=== PATIENT | male | born 1945 | race Caucasian/White ===

== ENCOUNTER 2017-02-18 09:41 | Day surgery (SDC) | payer OTHER ==
[~2017-02-18] VITALS: Ht 177.8 cm; Wt 85.2 kg
[~2017-02-18 09:41] MED LIST: pantoprazole PO
[2017-02-18 10:39] VITALS: Ht 177.8 cm; Wt 85.2 kg
[2017-02-18] MEDS ORDERED: SIMV40TA2 PO (10:49)
[2017-02-18] MEDS ORDERED: LIDOCAINE 4% SOLUTION 50 ML BTL ONE (11:14)
[2017-02-18 11:16] VITALS: BP 114/55; PULSE 54; RESP 18
[2017-02-18] MEDS ORDERED: FENTAnyl 50 MCG/ML VIAL ONE (11:46)
[2017-02-18] MEDS ORDERED: MIDAZOLAM 1 MG/ML 2 ML INJ ONE ×2 (11:46)
--- NOTE | 2017-02-18 11:52 | GILP ---
DATE OF PROCEDURE: PROCEDURE: Esophagogastroduodenoscopy. PREOPERATIVE DIAGNOSIS: Patient presenting with history of chronic heartburn, unresponsive to routi ne proton pump inhibitor therapy, rule out esophagitis, rule out Strange's esophagus, rule out erosi ve esophagitis. POSTOPERATIVE DIAGNOSES: 1. Mild reflux esophagitis, [place] classification A. 2. Small hiatal hernia. 3. Nodularity of the gastric body and mid body and the fundus. Biopsies were done as follows. DESCRIPTION OF PROCEDURE: After informed written consent was obtained, the patient was asked to lie on the left lateral side, 3 mg Versed and 50 mcg of fentanyl were given as intravenous anesthesia. When the patient became somnolent, the Olympus video upper endoscope was introduced into the orophar ynx, then into the esophagus. The esophagus showed evidence of 2 areas of erythema just above the G E junction and also a small hiatal hernia was noted. The reflux esophagitis was consistent with [place] classification A. Scope at this time was advanced into the stomach. Multiple polyps were noted in the mid body and fundus of the stomach. Multiple biopsies were obtained to rule out H pylo ri. Also, biopsy was done to rule out MALToma. Biopsy was done from the antrum, the lesser curvatu re and the fundus to rule out H pylori infection. Scope at this time was advanced into the duodenum . Entire duodenum appeared normal except minimal duodenitis in the bulb. Scope at this time was wi thdrawn, and the procedure was terminated. PLAN: Recommend proton pump inhibitor therapy to be continued, pantoprazole 40 mg a day, and wait f or the pathology report. Dictated By: BRETT NEWTON/NTS Conf#: [id number] DID#: [id number] CC: SHIRA MARQUEZ MD;*EndCC*
[2017-02-18 12:19] VITALS: BP 101/69; PULSE 50; RESP 19
== END 2017-02-18 13:44 | disposition home or self-care (01) ==
LOC: GIL 09:41
PROVIDERS: ATTEND Internal Medicine Gastroenterology
DX: K21.0 Gastro-esophageal reflux disease with esophagitis (principal); K44.9 Diaphragmatic hernia without obstruction or gangrene
CPT/HCPCS: 43239; 88305; 88312; 88313; J2250; J3010; Z7610

== ENCOUNTER 2018-11-10 06:19 | Observation (INO) | payer MEDICARE, OTHER ==
[2018-11-10] VITALS (16 sets, daily range): BP systolic 104–135; BP diastolic 60–74; PULSE 64–76; RESP 10–72; Ht 177.8 cm; Wt 86.1 kg
[~2018-11-10] VITALS: Ht 177.8 cm; Wt 86.1 kg
[~2018-11-10 06:19] MED LIST changes: +SIMV40TA2 PO
[2018-11-10] MEDS ORDERED: PROPOFOL 200 MG INJ ONE (07:00)
[2018-11-10] MEDS ORDERED: ROCURONIUM 50 MG INJ ONE (07:00)
[2018-11-10] MEDS ORDERED: SUCCINYLCHOLINE CHLORIDE 100 MG/5 ML SYG IV ONE (07:00)
[2018-11-10] MEDS ORDERED: PANT40TA3 PO (07:16)
--- NOTE | 2018-11-10 09:14 | HPN ---
Date/Time of Note Date/Time of Note DATE: 11/10/18 TIME: 09:14 Interval H&P Admission Note Pt. seen H&P reviewed: No system changes BRENNA VEGAS Nov 10, 2018 09:14
--- NOTE | 2018-11-10 09:15 | PREAC ---
Date/Time of Note Date/Time of Note DATE: 11/10/18 TIME: 09:13 Anesthesia Eval and Record Evaluation Time Pre-Procedure Interview DATE: 11/10/18 TIME: 09:13 Age 73 Sex male NPO: 8 hrs Preoperative diagnosis turp Planned procedure turp Past Medical History Past Medical History: None Surgery & Anesthesia Issues No known issue Meds Anticoagulation: No Beta Sp within 24 hr: No Reason Beta Sp not given: Pt. not on B-Sp Reported Medications Pantoprazole* (Protonix*) 40 Mg Tablet.dr, 40 MG PO DAILY, TAB 11/10/18 Discontinued Reported Medications Simvastatin* (Zocor*) 40 Mg Tablet, 40 MG PO QHS, #30 TAB 02/18/17 [pantoprazole] No Conflict Check, PO DAILY 09/29/13 Meds reviewed: Yes Allergies Coded Allergies: No Known Allergies (Verified Allergy, Unknown, 11/10/18) Allergies Reviewed: Yes Labs/Studies Labs Reviewed: Reviewed by anesthesiologist test: N/A Pre-procedure Exam Last vitals Vital Signs Date Temp Pulse Resp B/P (MAP) Pulse Ox O2 O2 Flow FiO2 Time Delivery Rate 11/10/18 96.7 64 16 114/63 98 Room Air 07:18 (80) Airway: Adequate mouth opening, Adequate thyromental dist Mallampati: Mallampati III Teeth: Normal Lung: Normal Heart: Normal ASA Physical Status ASA physical status: 2 Emergency: None Pre-operative Attestations Prior to commencing anesthesia and surgery, the patient was re-evaluated, there was verification of: *The patient's identity *The results of appropriate recent lab work and preoperative vital signs *The above evaluation not changing prior to induction *Anesthetic plan, risk benefits, alternative and complications discussed with patient/family; questions answered; patient/family understands, accepts and wishes to proceed. INDER BARTLETT DO Nov 10, 2018 09:15
[2018-11-10] MEDS ORDERED: ETOMIDATE 20 MG INJ ONE (09:16)
[2018-11-10] MEDS ORDERED: MIDAZOLAM 1 MG/ML 2 ML INJ ONE (09:16)
[2018-11-10] MEDS ORDERED: LIDOCAINE 1% (MDV) 20 ML INJ ONE (09:16)
[2018-11-10] MEDS ORDERED: FENTAnyl 50 MCG/ML VIAL ONE (09:16)
[2018-11-10] MEDS ORDERED: CIPROFLOXACIN 400MG/D5W 200 ML ONE (09:42)
[2018-11-10] MEDS ORDERED: DEXAMETHASONE 4 MG/ML 5 ML INJ ONE (09:47)
[2018-11-10] MEDS ORDERED: ONDANSETRON 4 MG INJ ONE (09:47)
[2018-11-10] MEDS ORDERED: GLYCOPYRROLATE 0.4 MG INJ ONE (11:01)
[2018-11-10] MEDS ORDERED: NEOSTIGMINE 3 MG/3 ML SYRINGE ONE (11:01)
[2018-11-10] MEDS: BELLADONNA ALK/OPIUM SUPP PR SCH ×2 (11:29→11:30)
[2018-11-10] MEDS ORDERED: ONDANSETRON 4 MG INJ IV PRN (11:30)
[2018-11-10] MEDS ORDERED: HYDROmorphONE 1 MG/5 ML IV SYRINGE IV PRN ×3 (11:30)
--- NOTE | 2018-11-10 11:39 | NUR ---
RECEIVED PATIENT FRO DYAN VIA GURNEY POST TURP UNDER GENERAL ANESTHESIA .AROUSABLE ON ARRIVAL .SHIVERING .PLACED ON BEAR HUGGER. RECEIVED WITH 3 WAY HESTER TO CONTINUOS BLADDER IRRIGATION ,DRAINING FREELY TO CRANBERRY PINK OUT PUT. SR /BP STABLE SATURATING 98% ON 3LNC.
--- NOTE | 2018-11-10 12:05 | NUR ---
C/O PAIN 04/27 .DILAUDID0.6MG IV GIVEN. ZOFRAN 4MG IV GIVEN.FOR NAUSEA PROPHYLAXIS.
--- NOTE | 2018-11-10 12:07 | PAC ---
Date/Time of Note Date/Time of Note DATE: 11/10/18 TIME: 12:06 Post-Anesthesia Notes Post-Anesthesia Note Last documented vital signs Vital Signs Date Temp Pulse Resp B/P (MAP) Pulse Ox O2 O2 Flow FiO2 Time Delivery Rate 11/10/18 98 64 15 112/65 98 Room Air 07:18 Activity: WNL Respiratory function: WNL Cardiovascular function: WNL Mental status: Baseline Pain reasonably controlled: Yes Hydration appropriate: Yes Nausea/Vomiting absent: Yes INDER BARTLETT DO Nov 10, 2018 12:07
--- NOTE | 2018-11-10 12:17 | NUR ---
STILL MOANING C/O PAIN 02/25 .DILAUDID0.4MG IV GIVEN.
--- NOTE | 2018-11-10 12:18 | OPR ---
Date/Time of Note Date/Time of Note DATE: 11/10/18 TIME: 12:16 Operative Report Procedure Date: Nov 10, 2018 Preoperative Diagnosis BPH, Bladder Neck Contracture Postoperative Diagnosis Same Operation/Procedure Performed TURP- TURBNC Surgeon Concha Family Dinner Service Specialist None Anesthesia Type: general Estimated Blood Loss: 100 - 150 ml's Transfusion none Specimen prostate and bladder neck contracture Grafts/Implants none Tubes/Drains [address] teixeira Complications none Pt Condition Post Procedure: stable Disposition: PACU Indications BNC and TORO Procedure Description dict [id number] BRENNA VEGAS Nov 10, 2018 12:18
--- NOTE | 2018-11-10 12:25 | NUR ---
KEEPS MOANING AND C/O PAIN 02/25 .DILAUDID0.6MG IV GIVEN. EDUCATEDA ABOUT PAIN GOAL AND PAIN LEVEL .
[2018-11-10] MEDS: DEXTROSE 5%-0.45% NACL 1,000 ML IV SCH (12:29)
[2018-11-10] MEDS ORDERED: MAGNESIUM HYDROXIDE 30ML CUP PO PRN (12:30)
[2018-11-10] MEDS ORDERED: HYDROCODONE/APAP (5/325) TAB PO PRN (12:30)
--- NOTE | 2018-11-10 12:35 | NUR ---
PAIN CONTROLLED TO 3/10 .GOAL MET .
--- NOTE | 2018-11-10 12:45 | NUR ---
TRANSFERRED TO 2E IN STABLE CONDITION PAIN CONTROLLED .3 WAY HESTER INTACT WITH CONTINUES BLADDER IRRIGATION DRAING FREELY TO LIGHT PINK OUT PUT. REPORT GIVEN TO LALIT BULL RN .DAUGHTER WAS INFORMED .
--- NOTE | 2018-11-10 14:29 | HP ---
JOHN WALDEN 11/10/18 1429: Date/Time of Note Date/Time of Note DATE: 11/10/18 TIME: 14:25 Assessment/Plan VTE Prophylaxis [place] [facility] [place] risk: 4 SCD applied ([place] [facility] [place] Yes Pharmacological prophylaxis: NA/contraindicated Pharm contraindication: surgical contra Lines/Catheters IV [facility] Type (from [facility] Saline Lock Urinary Cath still in place: Yes (3WAY HESTER) Reason Cath still needed: urinary retention Assessment/Plan Hospital Course 1. Status post prostatectomy for enlarged prostate by dr Kern, there were a previous prostatectomy 2011. SIRS 2. History of peptic ulcer disease, stomach polyp. 3. Overweight 4. Hyperlipidemia. 5. History of fatty liver. 6. Microcytic Normochromic anemia Assessment/Plan -DVT prophylaxis SCD bilaterally -GI prophylaxis Protonix -pain control Result Diagram: 11/10/18 1309 Results 24hrs Laboratory Tests Test 11/10/18 13:09 White Blood Count 11.0 H Red Blood Count 4.32 L Hemoglobin 12.0 L Hematocrit 37.1 L Mean Corpuscular Volume 85.9 Mean Corpuscular Hemoglobin 27.8 L Mean Corpuscular Hemoglobin Concent 32.3 Red Cell Distribution Width 13.3 Platelet Count 215 Mean Platelet Volume 9.7 Immature Granulocytes % 0.700 H Neutrophils % 86.6 H Lymphocytes % 10.3 L Monocytes % 1.6 Eosinophils % 0.5 Basophils % 0.3 Nucleated Red Blood Cells % 0.0 Immature Granulocytes # 0.080 H Neutrophils # 9.5 H Lymphocytes # 1.1 Monocytes # 0.2 L Eosinophils # 0.1 Basophils # 0.0 Nucleated Red Blood Cells # 0.0 HPI/ROS Admit Date/Time Admit Date/Time Nov 10, 2018 at 12:05 Hx of Present Illness This 73 yo male with medical history of GERD, BPH, hyperlipidemia and previous prostatectomy [address] Kern office with symptomatic bladder outlet obstruction and was sent to [facility] for TURP. Pt is seen after surgery in room. He is stable, denies pain, has cough after recent NANDO. ROS Respiratory: cough (dry) Cardiovascular: no complaints Genitourinary: no complaints Musculoskeletal: no complaints PMH/Family/Social Past Medical History Medical History: GERD Medications Current Medications Dextrose/Sodium Chloride 1,000 ml @ 50 mls/hr Q20H IV Last administered on 1/23/19at 12:29; Admin Dose 50 MLS/HR; Start 11/10/18 at 12:02 Acetaminophen/ Hydrocodone Bitart ([place] (5/325)) 1 tab Q4H PRN PO PAIN LEVEL 1-3; Start 11/10/18 at 12:30 Docusate Sodium (Colace) 100 mg BID PO ; Start 11/10/18 at 21:00 Magnesium Hydroxide (Milk Of Mag) 30 ml DAILY PRN PO CONSTIPATION; Start 11/10/18 at 12:30 Ciprofloxacin (Cipro) 500 mg BID@06,18 PO ; Start 11/10/18 at 18:00 Coded Allergies: No Known Allergies (Verified Allergy, Unknown, 11/10/18) Past Surgical History Past Surgical Hx: other (prostatectomy 2004) Family History Significant Family History: no pertinent family hx Social History Alcohol Use: none Smoking Status: Never smoker Drug Use: none Exam/Review of Systems Vital Signs Vitals Vital Signs Date Temp Pulse Resp B/P (MAP) Pulse Ox O2 O2 Flow FiO2 Time Delivery Rate 11/10/18 74 22 104/67 96 Room Air 12:38 (79) 11/10/18 3.0 12:25 11/10/18 97.4 11:48 Exam Constitutional: alert, oriented Respiratory: clear to auscultation Cardiovascular: regular rate and rhythm Gastrointestinal: soft Genitourinary - Male: other (hester) ASHELY BRAND MD 11/11/18 0639: Assessment/Plan Assessment/Plan Assessment/Plan seen and examined with FIRST AID OFFICER MANAGED PER UROLOGY HOME MEDS Result Diagram: 11/10/18 1309 PMH/Family/Social Past Medical History Coded Allergies: No Known Allergies (Verified Allergy, Unknown, 11/10/18) JOHN HERNANDEZ Nov 10, 2018 14:29 ASHELY BRAND MD Nov 11, 2018 06:39
[2018-11-10] MEDS ORDERED: BENZONATATE 100 MG CAP PO PRN (15:30)
[2018-11-10] MEDS: CIPROFLOXACIN 500 MG TAB PO SCH (17:52)
[2018-11-10] MEDS: PANTOPRAZOLE (EC) 40 MG TAB PO SCH (17:52)
--- NOTE | 2018-11-10 18:06 | NUR ---
patient is alert and oriented x4. patient denies pain. no shortness of breath or distress noted. patient remained afebrile and vital signs within normal limits. patient complained of intermittent coughing, contacted MD Kern and ordered Tessalon 100mg PRN. Bladder Irrigation running currently and the output reading documented under intake and output (the reading of output as follows per 3000ml irrigation ba, 800, 800, 2000, 700, 1700. No odor noted, urine color is clear with pink colors at times. will continue to monitor. fall precaution in place, call light within reach. will endorse to security shift supervisor nurse.
[2018-11-10] MEDS: DOCUSATE SODIUM 100 MG CAP PO SCH (20:15)
[2018-11-11] MEDS ORDERED: AL HYDROX/MG HYDROX/SIMETH 30 ML CUP PO PRN (01:30)
[2018-11-11 02:00] VITALS: BP 111/56; PULSE 60; RESP 18
[2018-11-11] MEDS: PANTOPRAZOLE (EC) 40 MG TAB PO SCH (05:47)
[2018-11-11] MEDS: CIPROFLOXACIN 500 MG TAB PO SCH (05:47)
[2018-11-11] MEDS: DEXTROSE 5%-0.45% NACL 1,000 ML IV SCH (05:50)
[2018-11-11 07:49] VITALS: BP 107/62; PULSE 59; RESP 16
--- NOTE | 2018-11-11 08:05 | PN ---
Date/Time of Note Date/Time of Note DATE: 11/11/18 TIME: 08:04 Assessment/Plan VTE Prophylaxis Risk score (from [facility] [place]0 risk: 3 SCD applied (from [facility] [place]): Yes Pharmacological prophylaxis: NA/contraindicated Pharm contraindication: surgical contra Lines/Catheters IV Catheter Type (from [facility] Saline Lock Urinary Cath still in place: Yes Reason Cath still needed: urinary retention Assessment/Plan Hospital Course 1. Status post prostatectomy for enlarged prostate by dr Kern, there were a previous prostatectomy 2011. SIRS 2. History of peptic ulcer disease, stomach polyp. 3. Overweight 4. Hyperlipidemia. 5. History of fatty liver. 6. Microcytic Normochromic anemia Assessment/Plan d/c Result Diagram: 11/11/18 0426 11/11/18 0426 Results 24hrs Laboratory Tests Test 11/10/18 13:09 11/11/18 04:26 White Blood Count 11.0 H 20.6 #H Red Blood Count 4.32 L 4.14 L Hemoglobin 12.0 L 11.5 L Hematocrit 37.1 L 34.6 L Mean Corpuscular Volume 85.9 83.6 Mean Corpuscular Hemoglobin 27.8 L 27.8 L Mean Corpuscular Hemoglobin Concent 32.3 33.2 Red Cell Distribution Width 13.3 13.1 Platelet Count 215 259 # Mean Platelet Volume 9.7 10.5 H Immature Granulocytes % 0.700 H 0.500 H Neutrophils % 86.6 H 86.5 H Lymphocytes % 10.3 L 8.0 L Monocytes % 1.6 4.9 Eosinophils % 0.5 0.0 Basophils % 0.3 0.1 Nucleated Red Blood Cells % 0.0 0.0 Immature Granulocytes # 0.080 H 0.110 H Neutrophils # 9.5 H 17.8 H Lymphocytes # 1.1 1.6 Monocytes # 0.2 L 1.0 H Eosinophils # 0.1 0.0 Basophils # 0.0 0.0 Nucleated Red Blood Cells # 0.0 0.0 Sodium Level 140 Potassium Level 3.9 Chloride Level 103 Carbon Dioxide Level 29 Anion Gap 8 Blood Urea Nitrogen 12 Creatinine 0.89 Est Glomerular Filtrat Rate mL/min Glucose Level 121 Calcium Level 9.1 Subjective 24 Hr Interval Summary Gastrointestinal: no complaints Musculoskeletal: no complaints Exam/Review of Systems Vital Signs Vitals Vital Signs Date Temp Pulse Resp B/P (MAP) Pulse Ox O2 O2 Flow FiO2 Time Delivery Rate 11/11/18 97.0 60 18 111/56 97 02:00 (74) 11/10/18 Room Air 13:00 11/10/18 3.0 12:25 Intake and Output 11/10/18 11/10/18 11/11/18 1515:00 23:00 07:00 IntakeIntake Total 8050 ml 34958 ml 55610 ml OutputOutput Total 1300 ml 5200 ml 8625 ml BalanceBalance 6750 ml 7000 ml 85637 ml Exam Constitutional: alert, oriented Neck: supple Cardiovascular: regular rate and rhythm Gastrointestinal: soft Genitourinary - Male: other (teixeira) Medications Medications Current Medications Dextrose/Sodium Chloride 1,000 ml @ 50 mls/hr Q20H IV Last administered on 11/11/18at 05:50; Admin Dose 50 MLS/HR; Start 11/10/18 at 12:02 Acetaminophen/ Hydrocodone Bitart ([place] (5/325)) 1 tab Q4H PRN PO PAIN LEVEL 1-3; Start 11/10/18 at 12:30 Docusate Sodium (Colace) 100 mg BID PO Last administered on 11/10/18at 20:15; Admin Dose 100 MG; Start 11/10/18 at 21:00 Magnesium Hydroxide (Milk Of Mag) 30 ml DAILY PRN PO CONSTIPATION; Start 11/10/18 at 12:30 Ciprofloxacin (Cipro) 500 mg BID@,18 PO Last administered on 11/11/18at 05:47; Admin Dose 500 MG; Start 11/10/18 at 18:00 Pantoprazole (Protonix Tab) 40 mg BID@06,18 PO Last administered on 11/11/18at 05:47; Admin Dose 40 MG; Start 11/10/18 at 18:00 Benzonatate (Tessalon) 100 mg TID PRN PO cough Last administered on 11/10/18at 17:52; Admin Dose 100 MG; Start 11/10/18 at 15:30 Al Hydrox/Mg Hydrox/Simethicone (Mag-Al Plus) 30 ml Q6H PRN PO GASTROINTESTINAL UPSET Last administered on 11/11/18at 01:35; Admin Dose 30 ML; Start 11/11/18 at 01:30 JOHN HERNANDEZ Nov 11, 2018 08:05
--- NOTE | 2018-11-11 08:15 | PDOCDIS ---
Discharge Instructions DIAGNOSIS Discharge Diagnosis BPH and bladder neck contracture CONDITION Kamari Patient Condition: Shen Good HOME CARE INSTRUCTIONS: Kamari Diet Instructions: Shen Regular ACTIVITY: Kamari Activity Restrictions: Shen Slowly Increase Activity Kamari Bathing Restrictions: Shen Shower FOLLOW UP/APPOINTMENTS Follow-up Plan Follow up in office for removal of Sung, call office for date REFERRALS Kamari Referring Provider: BRENNA Ayala EVAN Nov 11, 2018 08:15
--- NOTE | 2018-11-11 09:04 | DS ---
Date/Time of Note Date/Time of Note DATE: 11/11/18 TIME: 09:03 Discharge Summary Admission/Discharge Info Admit Date/Time Nov 10, 2018 at 12:05 Discharge Date/Time Discharge Diagnosis S/p TURP, hx of BPH and bladder neck contracture Patient Condition: Stable Consults Dr armenta Hospital Course This 73 yo male with medical history of GERD, BPH, hyperlipidemia and previous prostatectomy [address] Armenta office with symptomatic bladder outlet obstruction and was sent to [facility] for TURP. Pt is seen after surgery in room. He is stable, denies pain, has cough after recent NANDO.1. Status post prostatectomy for enlarged prostate by dr Armenta, there were a previous prostatectomy 2011. SIRS 2. History of peptic ulcer disease, stomach polyp. 3. Overweight 4. Hyperlipidemia. 5. History of fatty liver. 6. Microcytic Normochromic anemia Home Meds Reported Medications Pantoprazole* (Protonix*) 40 Mg Tablet., 40 MG PO DAILY, TAB 11/10/18 Discontinued Reported Medications Simvastatin* (Zocor*) 40 Mg Tablet, 40 MG PO QHS, #30 TAB 02/18/17 [pantoprazole] No Conflict Check, PO DAILY 09/29/13 Follow-up Plan Follow up in office for removal of Sung, call office for date Primary Care Provider [facility] Time spent on discharge: < 30 minutes Pending Labs Laboratory Tests Test 11/10/18 13:09 11/11/18 04:26 White Blood Count 11.0 10^3/ul (4.8-10.8) 20.6 10^3/ul (4.8-10.8) Red Blood Count 4.32 10^6/ul (4.70-6.10) 4.14 10^6/ul (4.70-6.10) Hemoglobin 12.0 g/dl (14.0-18.0) 11.5 g/dl (14.0-18.0) Hematocrit 37.1 % (42.0-52.0) 34.6 % (42.0-52.0) Mean Corpuscular Volume 85.9 fl (82.0-101.0) 83.6 fl (82.0-101.0) Mean Corpuscular 27.8 pg (29.0-33.0) 27.8 pg (29.0-33.0) Hemoglobin Mean Corpuscular 32.3 g/dl (32.0-37.0) 33.2 g/dl (32.0-37.0) Hemoglobin Concent Red Cell Distribution 13.3 % (11.5-14.5) 13.1 % (11.5-14.5) Width Platelet Count 215 10^3/UL (140-415) 259 10^3/UL (140-415) Mean Platelet Volume 9.7 fl (7.4-10.4) 10.5 fl (7.4-10.4) Immature Granulocytes % 0.700 % (0.001-0.429) 0.500 % (0.001-0.429) Neutrophils % 86.6 % (39.0-77.0) 86.5 % (39.0-77.0) Lymphocytes % 10.3 % (15.0-51.0) 8.0 % (15.0-51.0) Monocytes % 1.6 % (0.0-11.0) 4.9 % (0.0-11.0) Eosinophils % 0.5 % (0.0-7.0) 0.0 % (0.0-7.0) Basophils % 0.3 % (0.0-2.0) 0.1 % (0.0-2.0) Nucleated Red Blood Cells 0.0 /100WBC (0.0-0.0) 0.0 /100WBC (0.0-0.0) % Immature Granulocytes # 0.080 10^3/ul (0.0-0.031) 0.110 10^3/ul (0.0-0.031) Neutrophils # 9.5 10^3/ul (1.6-7.5) 17.8 10^3/ul (1.6-7.5) Lymphocytes # 1.1 10^3/ul (0.8-2.9) 1.6 10^3/ul (0.8-2.9) Monocytes # 0.2 10^3/ul (0.3-0.9) 1.0 10^3/ul (0.3-0.9) Eosinophils # 0.1 10^3/ul (0.0-0.5) 0.0 10^3/ul (0.0-0.5) Basophils # 0.0 10^3/ul (0.0-0.1) 0.0 10^3/ul (0.0-0.1) Nucleated Red Blood Cells 0.0 10^3/ul (0.0-0.0) 0.0 10^3/ul (0.0-0.0) # Sodium Level 140 mmol/L (135-144) Potassium Level 3.9 mmol/L (3.5-5.1) Chloride Level 103 mmol/L (97-110) Carbon Dioxide Level 29 mmol/L (21-31) Anion Gap 8 (5-13) Blood Urea Nitrogen 12 mg/dl (7-20) Creatinine 0.89 mg/dl (0.61-1.24) Est Glomerular Filtrat mL/min (>60) Rate mL/min Glucose Level 121 mg/dl (70-220) Calcium Level 9.1 mg/dl (8.4-10.2) JOHN HERNANDEZ Nov 11, 2018 09:04
--- NOTE | 2018-11-11 09:09 | DS ---
DATE OF ADMISSION: 11/10/2018 DATE OF DISCHARGE: 11/11/2018 DISCHARGE DIAGNOSES: Josephine is status post TURP and transurethral resection of bladder neck contractu re yesterday. HOSPITAL COURSE: On postop day #1 patient is doing very well. His vital signs are stable. Earlier this morning the continuous bladder irrigation was discontinued and the efflux of urine is crystal cl ear. There has been no fever or chills. He is tolerating p.o. well. Vital signs stable. PHYSICAL EXAMINATION: ABDOMEN: Soft, nondistended, nontender, no palpable masses. FLANK: No CVA tenderness or masses. Sung catheter draining clear yellow urine. LABS: Hemoglobin 11.5, blood pressure 115/56, heart rate 60, temperature 97. White blood count 20,0 00. IMPRESSION: Doing well status post TURP, status TUR bladder neck contracture noted to have leukocyto sis, otherwise within normal limits. He is afebrile and doing well. PLAN: Discharge to home with Sung to leg bag. Resume all medications. FOLLOWUP: In office for a trial of void. If the patient has a fever, would then initiate antibiotic therapy and will obtain followup CBC. All questions answered. Dictated By: BRENNA VEGAS MD EGR/NTS Conf#: [id number] DID#: [id number] CC: BRENNA VEGAS MD;*EndCC*
--- NOTE | 2018-11-11 09:57 | NUR ---
SPOKE TO [employer] Tim FLOOD ABOUT ORAL ANTIBIOTICS AT HOME FOR DISCHARGE, PER CONVERSATION PT. WILL BE DISCHARGE W/ OUT HOME ORAL ANTIBIOTICS. EXPLAINED TO PT. AND FAMILY AND ABLE TO UNDERSTAND WELL USING [employer] PRINT FINISHING WORKER KALEB BUI ENDORSED.
[2018-11-11] MEDS: DOCUSATE SODIUM 100 MG CAP PO SCH (10:32)
--- NOTE | 2018-11-11 11:53 | NUR ---
PT. WILL BE DISCHARGE HOME NOW , ALL DISCHARGE INSTRUCTIONS PROVIDED TO PT. AND FAMILY ABLE TO UNDERSTAND WELL USING [employer] PROPERTY COORDINATOR AGENT EVIN FRANK 1149. NO CHANGE OF CONDITION VS WITHIN RANGE ENDORSED.
== END 2018-11-11 12:18 | disposition home or self-care (01) ==
LOC: SDS 06:19 → REC 12:05 → SDS 12:05 → PP2 13:01
PROVIDERS: ADMIT Urology; ATTEND Urology
DX: N40.1 Benign prostatic hyperplasia with lower urinary tract symptoms (principal); N13.8 Other obstructive and reflux uropathy; N42.89 Other specified disorders of prostate; K21.9 Gastro-esophageal reflux disease without esophagitis; E78.5 Hyperlipidemia, unspecified; E66.3 Overweight; Z68.27 Body mass index [BMI] 27.0-27.9, adult; D64.9 Anemia, unspecified
CPT/HCPCS: 52601; 80048; 85025; 88307; G0378; J0744; J1170; J2250; J2405; J3010; J7042; J1100; J2710